=== PATIENT | female | born 1950 | race American Indian/Alaskan Native ===

== ENCOUNTER 2021-07-23 21:21 | Emergency (ER) | payer MEDICAID ==
[2021-07-23] MEDS ORDERED: ACETAMINOPHEN 500 MG TAB PO ONE (22:17)
[2021-07-23] MEDS ORDERED: IBUPROFEN 400 MG TAB PO ONE (22:38)
--- NOTE | 2021-07-23 22:41 | Emergency Department Report ---
ED General Adult HPI - General Chief complaint: Weakness Stated complaint: Weakness Time Seen by Provider: 07/23/21 22:34 Source: patient, EMS Mode of arrival: Stretcher Limitations: No Limitations - History of Present Illness Initial comments: Patient is a 70-year-old female with no history of any past medical problems who presents with fever chills and weakness has been going on for last few days. Patient states that her body aches are moderate patient states that she has been treating herself with TheraFlu and not feeling any better. Weakness is when she tries to move and is better with rest. Patient denies having any medical problems no nausea no shortness of breath no chest pain. Severity scale (0 -10): 5 - Related Data Previous Rx's Medication Instructions Recorded Last Taken Type D-Methorphan/PE/Acetaminophen 1 each PO Q6H #30 tablet 07/24/21 Unknown Rx [Tylenol Cold Max Day Caplet] Doxycycline Hyclate [Doxycycline 100 mg PO Q12HR #14 tab 07/24/21 Unknown Rx Hyclate TAB] Allergies Allergy/AdvReac Type Severity Reaction Status Date / Time clindamycin Allergy Unknown Verified 07/23/21 21:40 ED Review of Systems ROS: Stated complaint: Weakness Other details as noted in HPI Constitutional: denies: chills, fever Eyes: denies: eye pain, eye discharge, vision change ENT: denies: ear pain, throat pain Respiratory: cough. denies: shortness of breath, wheezing Cardiovascular: denies: chest pain, palpitations Endocrine: no symptoms reported Gastrointestinal: denies: abdominal pain, nausea, diarrhea Genitourinary: denies: urgency, dysuria, discharge Musculoskeletal: myalgia. denies: back pain, joint swelling, arthralgia Skin: denies: rash, lesions Neurological: denies: headache, weakness, paresthesias Psychiatric: denies: anxiety, depression Hematological/Lymphatic: denies: easy bleeding, easy bruising ED Past Medical Hx - Past Medical History Previous Medical History?: Yes Additional medical history: MS - Medications Home Medications: Home Medications Medication Instructions Recorded Confirmed Last Taken Type D-Methorphan/PE/Acetaminophen 1 each PO Q6H #30 tablet 07/24/21 Unknown Rx [Tylenol Cold Max Day Caplet] Doxycycline Hyclate [Doxycycline 100 mg PO Q12HR #14 tab 07/24/21 Unknown Rx Hyclate TAB] ED Physical Exam - General Limitations: No Limitations General appearance: alert, in no apparent distress - Head Head exam: Present: atraumatic, normocephalic - Eye Eye exam: Present: normal appearance - ENT ENT exam: Present: mucous membranes moist - Neck Neck exam: Present: normal inspection - Respiratory Respiratory exam: Present: normal lung sounds bilaterally. Absent: respiratory distress - Cardiovascular Cardiovascular Exam: Present: regular rate, normal rhythm. Absent: systolic murmur, diastolic murmur, rubs, gallop - GI/Abdominal GI/Abdominal exam: Present: soft, normal bowel sounds - Extremities Exam Extremities exam: Present: normal inspection - Back Exam Back exam: Present: normal inspection - Neurological Exam Neurological exam: Present: alert, oriented X3 - Psychiatric Psychiatric exam: Present: normal affect, normal mood - Skin Skin exam: Present: warm, dry, intact, normal color. Absent: rash ED Course Vital Signs 07/23/21 07/23/21 07/23/21 21:30 22:45 23:13 Temperature 102.3 F H 100.6 F H Pulse Rate 119 H 100 H Respiratory 20 20 20 Rate Blood Pressure 177/102 140/74 [Right] O2 Sat by Pulse 94 93 Oximetry ED Medical Decision Making - Lab Data Result diagrams: 07/23/21 22:59 07/23/21 22:59 Lab Results 07/23/21 07/23/21 07/23/21 Range/Units 22:59 22:59 22:59 WBC 3.6 L (4.5-11.0) K/mm3 RBC 4.67 (3.65-5.03) M/mm3 Hgb 12.8 (10.1-14.3) gm/dl Hct 40.3 (30.3-42.9) % MCV 86 (79-97) fl MCH 27 L (28-32) pg MCHC 32 (30-34) % RDW 16.1 H (13.2-15.2) % Plt Count 197 (140-440) K/mm3 Lymph % (Auto) 18.3 (13.4-35.0) % Wheeler % (Auto) 8.4 H (0.0-7.3) % Eos % (Auto) 0.0 (0.0-4.3) % Baso % (Auto) 0.2 (0.0-1.8) % Lymph # (Auto) 0.7 L (1.2-5.4) K/mm3 Wheeler # (Auto) 0.3 (0.0-0.8) K/mm3 Eos # (Auto) 0.0 (0.0-0.4) K/mm3 Baso # (Auto) 0.0 (0.0-0.1) K/mm3 Seg Neutrophils % 73.1 H (40.0-70.0) % Seg Neutrophils # 2.7 (1.8-7.7) K/mm3 Sodium 141 (137-145) mmol/L Potassium 3.6 (3.6-5.0) mmol/L Chloride 98.8 (98-107) mmol/L Carbon Dioxide 24 (22-30) mmol/L Anion Gap 22 mmol/L BUN 9 (7-17) mg/dL Creatinine 0.7 (0.6-1.2) mg/dL Estimated GFR > 60 ml/min BUN/Creatinine Ratio 13 % Glucose 108 H (65-100) mg/dL Lactic Acid 1.50 (0.7-2.0) mmol/L Calcium 8.8 (8.4-10.2) mg/dL NT-Pro-B Natriuret Pep (0-900) pg/mL 07/23/21 Range/Units 22:59 WBC (4.5-11.0) K/mm3 RBC (3.65-5.03) M/mm3 Hgb (10.1-14.3) gm/dl Hct (30.3-42.9) % MCV (79-97) fl MCH (28-32) pg MCHC (30-34) % RDW (13.2-15.2) % Plt Count (140-440) K/mm3 Lymph % (Auto) (13.4-35.0) % Wheeler % (Auto) (0.0-7.3) % Eos % (Auto) (0.0-4.3) % Baso % (Auto) (0.0-1.8) % Lymph # (Auto) (1.2-5.4) K/mm3 Wheeler # (Auto) (0.0-0.8) K/mm3 Eos # (Auto) (0.0-0.4) K/mm3 Baso # (Auto) (0.0-0.1) K/mm3 Seg Neutrophils % (40.0-70.0) % Seg Neutrophils # (1.8-7.7) K/mm3 Sodium (137-145) mmol/L Potassium (3.6-5.0) mmol/L Chloride (98-107) mmol/L Carbon Dioxide (22-30) mmol/L Anion Gap mmol/L BUN (7-17) mg/dL Creatinine (0.6-1.2) mg/dL Estimated GFR ml/min BUN/Creatinine Ratio % Glucose (65-100) mg/dL Lactic Acid (0.7-2.0) mmol/L Calcium (8.4-10.2) mg/dL NT-Pro-B Natriuret Pep 51.58 (0-900) pg/mL - Radiology Data Radiology results: report reviewed, image reviewed Chest x-ray shows no acute cardiopulmonary disease - Medical Decision Making Chief medical diagnosis: COVID-19 Differential medical diagnosis: Pneumonia, influenza I will get chest x-ray Tylenol Motrin blood work IV fluids and I will reevaluate the patient. Critical care attestation.: If time is entered above; I have spent that time in minutes in the direct care of this critically ill patient, excluding procedure time. ED Disposition Clinical Impression: Weakness, COVID-19 Fever Qualifiers: Fever type: unspecified Qualified Code(s): R50.9 - Fever, unspecified Disposition: 01 HOME / SELF CARE / HOMELESS Is pt being admited?: No Does the pt Need Aspirin: No Instructions: Fatigue, Fever, Adult, COVID-19 Frequently Asked Questions Prescriptions: Doxycycline Hyclate [Doxycycline Hyclate TAB] 100 mg PO Q12HR #14 tab D-Methorphan/PE/Acetaminophen [Tylenol Cold Max Day Caplet] 1 each PO Q6H #30 tablet Referrals: PRIMARY CARE, [Primary Care Provider] - 3-5 Days
--- NOTE | 2021-07-23 23:22 | XRay Report ---
CHEST 1 VIEW 07/23/2021 10:05 PM INDICATION / CLINICAL INFORMATION: weakness. COMPARISON: None available. FINDINGS: SUPPORT DEVICES: None. HEART / MEDIASTINUM: No significant abnormality. LUNGS / PLEURA: No significant pulmonary or pleural abnormality. No pneumothorax. ADDITIONAL FINDINGS: No significant additional findings. IMPRESSION: 1. No acute findings. Signer Name: Huber Hardin DO Signed: 07/23/2021 11:18 PM Workstation Name: [id number]
[2021-07-23 23:32] LABS: Basophils % (Auto) 0.2 % (0.0-1.8); Hematocrit 40.3 % (30.3-42.9); Hemoglobin 12.8 gm/dl (10.1-14.3); Lymphocytes # (Auto) 0.7 K/mm3 (1.2-5.4); Lymphocytes % (Auto) 18.3 % (13.4-35.0); Mean Corpuscular HGB Conc 32 % (30-34); Mean Corpuscular Volume 86 fl (79-97); Monocytes # (Auto) 0.3 K/mm3 (0.0-0.8); Monocytes % (Auto) 8.4 % (0.0-7.3); Platelet Count 197 K/mm3 (140-440); Red Blood Count 4.67 M/mm3 (3.65-5.03); Red Cell Distribution Width 16.1 % (13.2-15.2)
[2021-07-23] MEDS ORDERED: SODIUM CHLORIDE 0.9% 1000 ML 1,000 ML IV ONE (23:40)
[2021-07-23 23:48] LABS: Blood Urea Nitrogen 9 mg/dL (7-17); Calcium 8.8 mg/dL (8.4-10.2); Hemolysis Index 0
[2021-07-23 23:52] LABS: BUN/Creatinine Ratio 13
[2021-07-24 04:07] VITALS: BP 132/75
== END 2021-07-24 03:00 | disposition home or self-care (01) ==
LOC: ED 21:21
DX: U07.1 COVID-19 (principal); R50.9 Fever, unspecified; R53.1 Weakness
CPT/HCPCS: 36415; 71045; 80048; 82140; 83880; 85025; 99284

== ENCOUNTER 2021-08-14 10:09 | Inpatient (IN) | payer MEDICARE ==
[2021-08-14 11:15] LABS: Basophils % (Auto) 0.5 % (0.0-1.8); Eosinophils % (Auto) 0.1 % (0.0-4.3); Hemoglobin 11.3 gm/dl (10.1-14.3); Lymphocytes # (Auto) 0.9 K/mm3 (1.2-5.4); Lymphocytes % (Auto) 10.7 % (13.4-35.0); Mean Corpuscular HGB Conc 32 % (30-34); Mean Corpuscular Volume 87 fl (79-97); Monocytes # (Auto) 0.4 K/mm3 (0.0-0.8); Monocytes % (Auto) 4.8 % (0.0-7.3); Platelet Count 236 K/mm3 (140-440); Red Blood Count 4.15 M/mm3 (3.65-5.03); Red Cell Distribution Width 16.2 % (13.2-15.2)
--- NOTE | 2021-08-14 11:20 | XRay Report ---
CHEST 1 VIEW INDICATION: Chest Pain. COMPARISON: 07/23/2021 FINDINGS: Support devices: None. Heart: Within normal limits. Lungs/Pleura: No acute air space or interstitial disease. No pleural abnormality or pneumothorax. Additional findings: None. IMPRESSION: No acute findings or change since 07/23/2021. Signer Name: Delio Jones Jr, MD Signed: 08/14/2021 11:15 AM Workstation Name: [id number]
[2021-08-14 11:25] LABS: INR 0.92 (0.87-1.13)
[2021-08-14 11:26] LABS: Partial Thromboplastin Time 34.8 Sec. (24.2-36.6)
[2021-08-14 11:39] LABS: Alanine Aminotransferase 10 units/L (7-56); Albumin 3.6 g/dL (3.9-5); Blood Urea Nitrogen 5 mg/dL (7-17); Calcium 9.2 mg/dL (8.4-10.2); Hemolysis Index 36
[2021-08-14 11:43] LABS: BUN/Creatinine Ratio 13
[2021-08-14] MEDS ORDERED: MORPHINE 4 MG/1 ML INJ IV ONE ×2 (11:50→15:40)
[2021-08-14] MEDS ORDERED: ONDANSETRON 4 MG/2 ML INJ IV ONE (11:52)
--- NOTE | 2021-08-14 11:55 | Emergency Department Report ---
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 Patient describes the pain as a gas sensation with epigastric bloating and tenderness to palpation. Patient then b marline to experience pain in her chest. She took gas medication without relief. She did belch and pass gas rectally without improvement. She denies nausea, vomiting, shortness of breath, cough, or fever. 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 She denies previous abdominal surgeries or history of hypertension. She states she had a negative stress test approximately 1 year ago denies history of CAD. Previous history of smoking but stopped in 2003. Denies family history of CAD Chart initially states that patient has an allergy to clindamycin. Patient denied clindamycin allergy and states she has allergy to penicillin and tetracycline. She has an adverse reaction to aspirin and it makes her stomach upset. She denies true allergy to aspirin Severity scale (0 -10): 9 - Related Data Previous Rx's Medication Instructions Recorded Last Taken Type D-Methorphan/PE/Acetaminophen 1 each PO Q6H #30 tablet 07/24/21 Unknown Rx [Tylenol Cold Max Day Caplet] Doxycycline Hyclate [Doxycycline 100 mg PO Q12HR #14 tab 07/24/21 Unknown Rx Hyclate TAB] Allergies Allergy/AdvReac Type Severity Reaction Status Date / Time Penicillins Allergy Rash Verified 08/14/21 11:48 tetracycline Allergy Rash Verified 08/14/21 11:49 aspirin AdvReac Unknown Verified 08/14/21 11:49 Heart Score - HEART Score History: Slightly suspicious EKG: Non-specific Age: > 65 Risk factors: 1-2 risk factors Troponin: < normal limit HEART Score: 4 - EKG Read Time Time EKG Completed: 10:33 EKG Read Time: 10:40 ED Review of Systems ROS: Stated complaint: chest pain Other details as noted in HPI Comment: All other systems reviewed and negative ED Past Medical Hx - Past Medical History Previous Medical History?: Yes Additional medical history: avm of the thoracic spine - Surgical History Past Surgical History?: Yes Additional Surgical History: spinal surgery x 2 2004 - Social History Smoking Status: Unknown if ever smoked - Medications Home Medications: Home Medications Medication Instructions Recorded Confirmed Last Taken Type D-Methorphan/PE/Acetaminophen 1 each PO Q6H #30 tablet 07/24/21 Unknown Rx [Tylenol Cold Max Day Caplet] Doxycycline Hyclate [Doxycycline 100 mg PO Q12HR #14 tab 07/24/21 Unknown Rx Hyclate TAB] ED Physical Exam - General Limitations: No Limitations - Other Other exam information: General: No acute distress Head: Atraumatic Eyes: normal appearance ENT: Moist mucous membranes Neck: Normal appearance, no midline tenderness Chest: Clear to auscultation bilaterally CV: Regular rate and rhythm Abdomen: Soft, normal bowel sounds, epigastric tenderness and bloating. No rebound or guarding Back: Posterior thoracic surgical scar from previous surgery Extremity: Normal inspection, full range of motion Neuro: Alert O x 3, no facial asymmetry, speech clear, no gross motor sensory deficit Psych: Appropriate behavior Skin: No rash ED Course Vital Signs 08/14/21 08/14/21 10:48 10:52 Temperature 98.4 F Pulse Rate 71 Respiratory 12 Rate Blood Pressure 146/76 [Right] O2 Sat by Pulse 97 97 Oximetry - Reevaluation(s) Reevaluation #1: 08/14/21 14:59 Pt is noted to have a drop in o2 sat to the 80's with ambulation as per nurse - Consultations Consultation #1: 08/14/21 11:53 case Bubba housing counselor who aggress that ekg does not show STEMI 08/14/21 15:41 08/14/21 I did discuss case with neurosurgeon Dr. Ca who states that spinal AVMs in 2004 is not a contraindication to receive anticoagulation ED Medical Decision Making - Lab Data Result diagrams: 08/14/21 10:54 08/14/21 10:54 Lab Results 08/14/21 08/14/21 08/14/21 Range/Units 10:54 10:54 10:54 WBC 8.2 (4.5-11.0) K/mm3 RBC 4.15 (3.65-5.03) M/mm3 Hgb 11.3 (10.1-14.3) gm/dl Hct 36.0 (30.3-42.9) % MCV 87 (79-97) fl MCH 27 L (28-32) pg MCHC 32 (30-34) % RDW 16.2 H (13.2-15.2) % Plt Count 236 (140-440) K/mm3 Lymph % (Auto) 10.7 L (13.4-35.0) % Beckham % (Auto) 4.8 (0.0-7.3) % Eos % (Auto) 0.1 (0.0-4.3) % Baso % (Auto) 0.5 (0.0-1.8) % Lymph # (Auto) 0.9 L (1.2-5.4) K/mm3 Beckham # (Auto) 0.4 (0.0-0.8) K/mm3 Eos # (Auto) 0.0 (0.0-0.4) K/mm3 Baso # (Auto) 0.0 (0.0-0.1) K/mm3 Seg Neutrophils % 83.9 H (40.0-70.0) % Seg Neutrophils # 6.9 (1.8-7.7) K/mm3 PT 13.4 (12.2-14.9) Sec. INR 0.92 (0.87-1.13) APTT 34.8 (24.2-36.6) Sec. D-Dimer 1972.09 H (0-234) ng/mlDDU Sodium 131 L (137-145) mmol/L Potassium 4.2 (3.6-5.0) mmol/L Chloride 97.7 L (98-107) mmol/L Carbon Dioxide 21 L (22-30) mmol/L Anion Gap 17 mmol/L BUN 5 L (7-17) mg/dL Creatinine 0.4 L (0.6-1.2) mg/dL Estimated GFR > 60 ml/min BUN/Creatinine Ratio 13 % Glucose 116 H (65-100) mg/dL Calcium 9.2 (8.4-10.2) mg/dL Magnesium 1.80 (1.7-2.3) mg/dL Total Bilirubin 0.50 (0.1-1.2) mg/dL AST 15 (5-40) units/L ALT 10 (7-56) units/L Alkaline Phosphatase 70 (35-129) units/L Troponin T < 0.010 (0.00-0.029) ng/mL Total Protein 7.3 (6.3-8.2) g/dL Albumin 3.6 L (3.9-5) g/dL Albumin/Globulin Ratio 1.0 % Lipase 10 L (13-60) units/L - EKG Data -: EKG Interpreted by Me (Inferior Q waves) EKG shows normal: sinus rhythm, intervals (Prolonged QTC 517), QRS complexes (Normal QRS duration 82), ST-T waves (Anterior T wave inversions. Inferior T wave inversion) - EKG Data When compared to previous EKG there are: previous EKG unavailable - Radiology Data Radiology results: report reviewed CHEST 1 VIEW INDICATION: Chest Pain. COMPARISON: 07/23/2021 FINDINGS: Support devices: None. Heart: Within normal limits. Lungs/Pleura: No acute air space or interstitial disease. No pleural abnormality or pneumothorax. Additional findings: None. IMPRESSION: No acute findings or change since 07/23/2021. CTA CHEST WITH CONTRAST INDICATION / CLINICAL INFORMATION: epigastric and chest pain, elevated dimer 100 ML OMNI 350 . TECHNIQUE: Axial CT images were obtained through the chest after injection of 100 cc of Omnipaque 350 IV contrast. 3 plane MIP and/or 3D reconstructions were produced. All CT scans at this location are performed using CT dose reduction for ALARA by means of automated exposure control. COMPARISON: Chest radiograph from earlier in the day FINDINGS: PULMONARY ARTERIES: Multiple filling defects are noted within the segmental and subsegmental arteries of the right lower, right middle, right upper and left lower lobes. No evidence of right heart strain. THORACIC AORTA: No significant abnormality. HEART: No significant abnormality. CORONARY ARTERY CALCIFICATION: None. MEDIASTINUM / ZULEYKA: No significant abnormality. PLEURA: No pleural effusion. No pneumothorax. LUNGS: Scattered atelectasis. ADDITIONAL FINDINGS: None. UPPER ABDOMEN: Small hiatal hernia. SKELETAL STRUCTURES: Scattered degeneration. IMPRESSION: 1. Multiple pulmonary emboli. 2. Otherwise no acute findings. CTA ABDOMEN AND PELVIS (AORTIC ANEURYSM) INDICATION / CLINICAL INFORMATION: epigastric and chest pain, elevated dimer OMNI 350 100ML. TECHNIQUE: Axial CT images were obtained through the abdomen and pelvis after injection of 100 cc of Omnipaque 350 IV contrast. 3 plane MIP and/or 3D reconstructions were produced. All CT scans at this location are performed using CT dose reduction for ALARA by means of automated exposure control. COMPARISON: CT of the chest from earlier in the day FINDINGS: ABDOMINAL AORTA: - Dissection: No dissection. - Aneurysm: No aneurysm or pseudoaneurysm. - Atherosclerosis: No significant atherosclerosis. CELIAC TRUNK: No significant abnormality. SUPERIOR MESENTERIC ARTERY: No significant abnormality. RENAL ARTERIES: No significant abnormality. INFERIOR MESENTERIC ARTERY: No significant abnormality. RIGHT ILIAC ARTERIES: No acute abnormality. No significant atherosclerosis. LEFT ILIAC ARTERIES: No acute abnormality. No significant atherosclerosis. RIGHT FEMORAL ARTERIES: No acute abnormality. No significant atherosclerosis. LEFT FEMORAL ARTERIES: No acute abnormality. No significant atherosclerosis. ABDOMINOPELVIC VEINS: Single IVC of normal caliber to the right of midline. No significant abnormality. ADDITIONAL FINDINGS: Redemonstration of pulmonary emboli better appreciated on CTA of the chest. Scattered atelectasis in bilateral lung bases. Small hiatal hernia. Increased density within the gallbladder lumen suggesting gallbladder sludge. Fibroid uterus. SKELETAL SYSTEM: Scattered degeneration. IMPRESSION: 1. No evidence of aortic aneurysm or dissection. 2. Redemonstrated pulmonary emboli, better appreciated on concurrent CT of the chest. 3. Other incidental findings as above. - Medical Decision Making 70-year-old female presents to the hospital with epigastric pain radiating to the chest. CT angio chest abdomen pelvis unremarkable for acute abdominal pathology but significant for multiple pulmonary emboli. Patient was here in June with URI symptoms and did not receive a COVID test. Patient now endorses dyspnea on exertion and nurse noticed O2 sat decreased to the 80s with ambulation. Patient provided morphine, Zofran, and Maalox for abdominal pain. Lovenox provided for pulmonary emboli. Patient will be admitted to the hospital service for further treatment. EKG does show abnormalities without previous for comparison. She does not meet ST elevation MT criteria at this time and EKG findings may be secondary to pulmonary emboli versus chronic changes. Critical Care Time: No Critical care attestation.: If time is entered above; I have spent that time in minutes in the direct care of this critically ill patient, excluding procedure time. ED Disposition Clinical Impression: Pulmonary emboli, Abdominal pain, Chest pain Disposition: ADMITTED INPATIENT Is pt being admited?: Yes Condition: Stable Time of Disposition: 14:52
--- NOTE | 2021-08-14 13:21 | Cat Scan Report ---
CTA CHEST WITH CONTRAST INDICATION / CLINICAL INFORMATION: epigastric and chest pain, elevated dimer 100 ML OMNI 350 . TECHNIQUE: Axial CT images were obtained through the chest after injection of 100 cc of Omnipaque 350 IV contrast. 3 plane MIP and/or 3D reconstructions were produced. All CT scans at this location are performed using CT dose reduction for ALARA by means of automated exposure control. COMPARISON: Chest radiograph from earlier in the day FINDINGS: PULMONARY ARTERIES: Multiple filling defects are noted within the segmental and subsegmental arteries of the right lower, right middle, right upper and left lower lobes. No evidence of right heart strai n. THORACIC AORTA: No significant abnormality. HEART: No significant abnormality. CORONARY ARTERY CALCIFICATION: None. MEDIASTINUM / ZULEYKA: No significant abnormality. PLEURA: No pleural effusion. No pneumothorax. LUNGS: Scattered atelectasis. ADDITIONAL FINDINGS: None. UPPER ABDOMEN: Small hiatal hernia. SKELETAL STRUCTURES: Scattered degeneration. IMPRESSION: 1. Multiple pulmonary emboli. 2. Otherwise no acute findings. CRITICAL RESULT Time of Discovery (AUTOMOTIVE GLASS MECHANIC/CDT): 12:08 PM Time of Communication (AUTOMOTIVE GLASS MECHANIC/CDT): 12:15 PM Licensed Practitioner Receiving Report: Dr. Lucas Read-Back Performed: Yes. Signer Name: Huber Hardin DO Signed: 08/14/2021 1:17 PM Workstation Name: [id number]
--- NOTE | 2021-08-14 14:02 | Cat Scan Report ---
CTA ABDOMEN AND PELVIS (AORTIC ANEURYSM) INDICATION / CLINICAL INFORMATION: epigastric and chest pain, elevated dimer OMNI 350 100ML. TECHNIQUE: Axial CT images were obtained through the abdomen and pelvis after injection of 100 cc of Omnipaque 350 IV contrast. 3 plane MIP and/or 3D reconstructions were produced. All CT scans at this location are performed using CT dose reduction for ALARA by means of automated exposure control. COMPARISON: CT of the chest from earlier in the day FINDINGS: ABDOMINAL AORTA: - Dissection: No dissection. - Aneurysm: No aneurysm or pseudoaneurysm. - Atherosclerosis: No significant atherosclerosis. CELIAC TRUNK: No significant abnormality. SUPERIOR MESENTERIC ARTERY: No significant abnormality. RENAL ARTERIES: No significant abnormality. INFERIOR MESENTERIC ARTERY: No significant abnormality. RIGHT ILIAC ARTERIES: No acute abnormality. No significant atherosclerosis. LEFT ILIAC ARTERIES: No acute abnormality. No significant atherosclerosis. RIGHT FEMORAL ARTERIES: No acute abnormality. No significant atherosclerosis. LEFT FEMORAL ARTERIES: No acute abnormality. No significant atherosclerosis. ABDOMINOPELVIC VEINS: Single IVC of normal caliber to the right of midline. No significant abnormalit y. ADDITIONAL FINDINGS: Redemonstration of pulmonary emboli better appreciated on CTA of the chest. Scat tered atelectasis in bilateral lung bases. Small hiatal hernia. Increased density within the gallblad robbie lumen suggesting gallbladder sludge. Fibroid uterus. SKELETAL SYSTEM: Scattered degeneration. IMPRESSION: 1. No evidence of aortic aneurysm or dissection. 2. Redemonstrated pulmonary emboli, better appreciated on concurrent CT of the chest. 3. Other incidental findings as above. Signer Name: Huber Hardin DO Signed: 08/14/2021 1:58 PM Workstation Name: [id number]
[2021-08-14] MEDS ORDERED: ENOXAPARIN 100 MG/1 ML INJ SUB-Q ONE (14:34)
--- NOTE | 2021-08-14 14:53 | History and Physical Report ---
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 Patient reports "it hurts and I breathe". Patient states that she has experienced chest discomfort over the past this Thursday with intermittent symptoms over the same timeframe. Patient states that she aches felt as if she had bloating in her chest and initially experienced relieved with belching. Patient states the pain has gotten progressively worse over the past 8 hours. Patient states that pain is 9/10, is now constant, worsened with deep breathing, not relieved with rest. EMS was notified and upon arrival the patient was found to be in distress and subsequent transported to [facility] for further care and evaluation of the aforementioned symptoms. The patient was seen and evaluated in the emergency department. All lab and imaging studies reviewed. Patient underwent CTA of the chest and was found to have diffuse right pulmonary emboli, hyponatremia. Patient admitted to medical floor due to increased risk of worsening symptoms. Patient treated with initiation of therapeutic anticoagulation without relief in symptoms. Patient denies fever, chills, palpitation, productive cough, skin rash, recent contact, or known exposure to COVID-19. No prior admission for review. All medication listed at time of admission has been reconciled. Advanced care planning conducted in ED. Past History Past Medical History: other (See HPI) Past Surgical History: Other (Spine surgery) Social history: single Family history: diabetes, hypertension Medications and Allergies Allergies Allergy/AdvReac Type Severity Reaction Status Date / Time Penicillins Allergy Rash Verified 08/14/21 11:48 tetracycline Allergy Rash Verified 08/14/21 11:49 aspirin AdvReac Unknown Verified 08/14/21 11:49 Home Medications Medication Instructions Recorded Confirmed Last Taken Type D-Methorphan/PE/Acetaminophen 1 each PO Q6H #30 tablet 07/24/21 Unknown Rx [Tylenol Cold Max Day Caplet] Doxycycline Hyclate [Doxycycline 100 mg PO Q12HR #14 tab 07/24/21 Unknown Rx Hyclate TAB] Review of Systems Constitutional: no weight loss, no weight gain, no fever, no chills Ears, nose, mouth and throat: no ear pain, no ear discharge, no decreased hearing, no nasal discharge, no sinus pressure Cardiovascular: no chest pain, no orthopnea, no palpitations Respiratory: shortness of breath, pleurisy, no cough Gastrointestinal: no abdominal pain, no nausea, no vomiting, no diarrhea Genitourinary Female: no pelvic pain, no flank pain, no dysuria, no urinary frequency, no urgency, no stress incontinence Rectal: no pain, no incontinence, no bleeding Musculoskeletal: no neck stiffness, no neck pain, no shooting arm pain, no arm numbness/tingling, no low back pain Integumentary: no rash, no pruritis, no redness, no sores, no wounds Neurological: no head injury, no transient paralysis, no paralysis, no weakness, no parathesias, no numbness Psychiatric: no anxiety, no memory loss, no change in sleep habits, no insomnia, no hypersomnia, no suicidal ideation, no disorientation Endocrine: no cold intolerance, no heat intolerance, no polyphagia, no polyuria Hematologic/Lymphatic: no easy bruising, no easy bleeding, no lymphedema Allergic/Immunologic: no urticaria, no allergic rhinitis, no persistent infections Exam - Constitutional Vitals: Temp Pulse Resp BP Pulse Ox 98.4 F 71 12 146/76 97 08/14/21 10:48 08/14/21 10:48 08/14/21 10:48 08/14/21 10:48 08/14/21 10:52 General appearance: Present: mild distress, obese - EENT Eyes: Present: PERRL ENT: hearing intact, clear oral mucosa - Neck Neck: Present: supple, normal ROM - Respiratory Respiratory effort: normal Respiratory: right: diminished - Cardiovascular Heart Sounds: Present: S1 & S2. Absent: rub, click - Extremities Extremities: pulses symmetrical, No edema Peripheral Pulses: within normal limits - Abdominal General gastrointestinal: Present: soft, non-tender, non-distended, normal bowel sounds Female genitourinary: Present: normal - Integumentary Integumentary: Present: clear, warm, dry - Musculoskeletal Musculoskeletal: gait normal, strength equal bilaterally - Psychiatric Psychiatric: appropriate mood/affect, intact judgment & insight - Neurologic Neurologic: CNII-XII intact, moves all extremities HEART Score - HEART Score EKG: Non-specific Age: > 65 Risk factors: 1-2 risk factors Troponin: Troponin T < 0.010 ng/mL (0.00-0.029) 08/14/21 10:54 Results - Labs CBC & Chem 7: 01/19/22 17:24 08/14/21 10:54 Labs: Abnormal lab results 08/14/21 08/14/21 08/14/21 Range/Units 10:54 10:54 10:54 MCH 27 L (28-32) pg RDW 16.2 H (13.2-15.2) % Lymph % (Auto) 10.7 L (13.4-35.0) % Lymph # (Auto) 0.9 L (1.2-5.4) K/mm3 Seg Neutrophils % 83.9 H (40.0-70.0) % D-Dimer 1972.09 H (0-234) ng/mlDDU Sodium 131 L (137-145) mmol/L Chloride 97.7 L (98-107) mmol/L Carbon Dioxide 21 L (22-30) mmol/L BUN 5 L (7-17) mg/dL Creatinine 0.4 L (0.6-1.2) mg/dL Glucose 116 H (65-100) mg/dL Albumin 3.6 L (3.9-5) g/dL Lipase 10 L (13-60) units/L Assessment and Plan - Patient Problems (1) Pulmonary emboli Current Visit: Yes Status: Acute Qualifiers: Acute cor pulmonale presence: without acute cor pulmonale Plan to address problem: CT scan chest, chest x-ray, supplemental oxygen, pulse oximetry, therapeutic anticoagulation. (2) Obesity hypoventilation syndrome Current Visit: Yes Status: Acute Plan to address problem: Balanced diet, increase physical activity at discharge, outpatient pulmonary follow-up for sleep study. (3) Hyponatremia syndrome Current Visit: Yes Status: Acute Plan to address problem: BMP, IV fluid resuscitation therapy, repeat BMP in AM. (4) DVT prophylaxis Current Visit: Yes Status: Acute Plan to address problem: SCD to bilateral lower extremities while in bed, continue therapeutic anticoagulation (5) Advance care planning Current Visit: Yes Status: Acute Plan to address problem: Disease education conducted, care plan discussed, diagnosis discussed, patient prognosis discussed, patient is full code, patient acknowledges understanding and agreement with care plan, +30 minutes
[2021-08-14] MEDS ORDERED: ALUM-MAG HYDROXIDE-SIMETHICONE 200-200-20MG/5ML ORAL LIQD 30 ML PO ONE (15:40)
[2021-08-14] MEDS ORDERED: ALBUTEROL 2.5 MG/3 ML NEBU IH PRN (16:11)
[2021-08-14] MEDS ORDERED: ACETAMINOPHEN 325 MG TAB PO PRN (16:11)
[2021-08-14] MEDS ORDERED: ONDANSETRON 4 MG/2 ML INJ IV PRN (16:11)
[2021-08-14] MEDS ORDERED: oxyCODONE /ACETAMINOPHEN 5-325MG TAB PO PRN (16:11)
[2021-08-14 17:56] LABS: Hematocrit 38.1 % (30.3-42.9); Hemoglobin 12.2 gm/dl (10.1-14.3); Mean Corpuscular HGB Conc 32 % (30-34); Mean Corpuscular Volume 88 fl (79-97); Platelet Count 246 K/mm3 (140-440); Red Blood Count 4.35 M/mm3 (3.65-5.03); Red Cell Distribution Width 16.5 % (13.2-15.2)
[2021-08-14] MEDS: HYDROmorphone 1 MG/1 ML INJ IV PRN (18:05)
[2021-08-14] MEDS: SODIUM CHLORIDE 0.45% 1000 ML 1,000 ML IV SCH (18:05)
[2021-08-14 18:09] LABS: INR 0.97 (0.87-1.13); Partial Thromboplastin Time 41.4 Sec. (24.2-36.6)
[2021-08-14] MEDS: APIXABAN 5 MG TAB PO SCH (23:02)
[2021-08-15 04:07] LABS: Bilirubin,Urine NEG (Negative); Blood,Urine NEG (Negative); Color,Urine Straw (Yellow); Protein,Urine <15 mg/dL mg/dL (Negative); RBC,Urine < 1.0 /HPF (0.0-6.0); Urobilinogen,Urine < 2.0 mg/dL (<2.0)
[2021-08-15 04:19] LABS: WBC,Urine < 1.0 /HPF (0.0-6.0)
[2021-08-15 04:59] LABS: Alanine Aminotransferase 9 units/L (7-56); Albumin 3.6 g/dL (3.9-5); Blood Urea Nitrogen 8 mg/dL (7-17); Calcium 8.6 mg/dL (8.4-10.2); Hemolysis Index 2
[2021-08-15 05:08] LABS: BUN/Creatinine Ratio 11
[2021-08-15] MEDS: HYDROmorphone 1 MG/1 ML INJ IV PRN ×2 (05:11→21:23)
[2021-08-15] MEDS: APIXABAN 5 MG TAB PO SCH ×2 (11:22→21:19)
[2021-08-15] MEDS ORDERED: ALPRAZolam 0.25 MG TAB PO PRN (13:00)
--- NOTE | 2021-08-15 15:28 | Progress Note ---
Assessment and Plan -- Pulmonary emboli Current Visit: Yes Status: Acute Qualifiers: Acute cor pulmonale presence: without acute cor pulmonale Plan to address problem: supplemental oxygen, pulse oximetry, cont therapeutic anticoagulation. --COVID PUI, test ordered -- Obesity Current Visit: Yes Status: Acute Plan to address problem: Balanced diet, increase physical activity at discharge, outpatient pulmonary follow-up for sleep study. -- Hyponatremia syndrome Current Visit: Yes Status: Acute Plan to address problem: BMP, IV fluid resuscitation therapy, repeat BMP in AM. -- DVT prophylaxis Current Visit: Yes Status: Acute Plan to address problem: SCD to bilateral lower extremities while in bed, continue therapeutic anticoagulation -- Advance care planning Current Visit: Yes Status: Acute Plan to address problem: Disease education conducted, care plan discussed, diagnosis discussed, patient prognosis discussed, patient is full code, patient acknowledges understanding and agreement with care plan, +30 minutes Subjective Date of service: 08/15/21 Interval history: Patient seen and examined. Medical records and medication list reviewed. No acute event overnight noted by the RN. Patient denies any chest pain or difficulty breathing. Patient is tolerating diet. Discussed plan of care at bedside with patient. Objective - Exam Narrative Exam: GENERAL: well-developed obese elderly AAF lying on bed appeared to be in no discomfort. HEENT: Normocephalic. Atraumatic. No conjunctival congestion or icterus. Patient has moist mucous membranes. NECK: Supple. Trachea midline. CHEST/LUNGS: Clear to auscultated bilaterally, breathing nonlabored. No wheezes crackles or rhonchi. HEART/CARDIOVASCULAR: Regular in rate and rhythm. S1 and S2 positive. ABDOMEN: Abdomen is soft, nontender. Patient has normal bowel sounds. SKIN: There is no rash. Warm and dry. NEURO: No focal motor deficit. Follows command. MUSCULOSKELETAL: No joint effusion or tenderness. EXTRIMITY: No edema, no cyanosis or clubbing. PSYCH: Cooperative. - Constitutional Vitals: Vital Signs - 12hr 08/15/21 08/15/21 08/15/21 04:00 05:00 05:11 Pulse Rate 93 H 88 Respiratory 17 19 18 Rate Blood Pressure Blood Pressure 117/84 144/73 [Right] O2 Sat by Pulse 97 98 Oximetry 08/15/21 08/15/21 08/15/21 05:41 06:01 06:15 Pulse Rate 86 84 Respiratory 18 14 16 Rate Blood Pressure 111/53 111/53 Blood Pressure [Right] O2 Sat by Pulse 95 94 Oximetry 08/15/21 08/15/21 08/15/21 06:31 06:45 07:01 Pulse Rate 99 H 84 88 Respiratory 14 16 16 Rate Blood Pressure 118/70 118/70 141/91 Blood Pressure [Right] O2 Sat by Pulse 95 95 93 Oximetry 08/15/21 08/15/21 08/15/21 08:00 09:00 10:00 Pulse Rate 84 90 94 H Respiratory 11 L 16 19 Rate Blood Pressure 136/82 128/86 158/84 Blood Pressure [Right] O2 Sat by Pulse 96 96 96 Oximetry 08/15/21 08/15/21 11:00 12:01 Pulse Rate 89 96 H Respiratory 20 22 Rate Blood Pressure 149/76 156/74 Blood Pressure [Right] O2 Sat by Pulse 97 97 Oximetry - Labs CBC & Chem 7: 08/16/21 05:20 08/15/21 03:51 Labs: Abnormal lab results 08/14/21 08/14/21 08/14/21 Range/Units 17:24 17:24 17:24 RDW 16.5 H (13.2-15.2) % APTT 41.4 H (24.2-36.6) Sec. Sodium (137-145) mmol/L Creatinine 0.5 L (0.6-1.2) mg/dL Glucose (65-100) mg/dL Albumin (3.9-5) g/dL 08/15/21 Range/Units 03:51 RDW (13.2-15.2) % APTT (24.2-36.6) Sec. Sodium 135 L (137-145) mmol/L Creatinine (0.6-1.2) mg/dL Glucose 130 H (65-100) mg/dL Albumin 3.6 L (3.9-5) g/dL HEART Score - HEART Score EKG: Non-specific Age: > 65 Risk factors: 1-2 risk factors Troponin: Troponin T < 0.010 ng/mL (0.00-0.029) 08/14/21 17:24 Troponin: < normal limit
--- NOTE | 2021-08-15 16:55 | Vascular Lab Report ---
DUPLEX DOPPLER LOWER EXTREMITY VEINS, BILATERAL INDICATION / CLINICAL INFORMATION: Pulmonary emboli, chest pain. TECHNIQUE: Duplex doppler imaging was performed through the veins of both lower extremities using cindy ous compression and other maneuvers. COMPARISON: None available. FINDINGS: RIGHT COMMON FEMORAL VEIN: Negative. RIGHT FEMORAL VEIN: Negative. RIGHT POPLITEAL VEIN: Negative. RIGHT CALF VEINS: Negative. LEFT COMMON FEMORAL VEIN: Negative. LEFT FEMORAL VEIN: Negative. LEFT POPLITEAL VEIN: Negative. LEFT CALF VEINS: Negative. ADDITIONAL FINDINGS: None. IMPRESSION: 1. No sonographic evidence for DVT in either lower extremity. Signer Name: Lonny Anderson MD Signed: 08/15/2021 4:50 PM Workstation Name: [id number]
[2021-08-16 06:04] LABS: Hematocrit 33.9 % (30.3-42.9); Hemoglobin 10.8 gm/dl (10.1-14.3); Mean Corpuscular HGB Conc 32 % (30-34); Mean Corpuscular Volume 88 fl (79-97); Platelet Count 239 K/mm3 (140-440); Red Blood Count 3.84 M/mm3 (3.65-5.03); Red Cell Distribution Width 16.3 % (13.2-15.2)
[2021-08-16] MEDS: SODIUM CHLORIDE 0.45% 1000 ML 1,000 ML IV SCH (06:39)
[2021-08-16 07:34] VITALS: BP 135/69
[2021-08-16] MEDS: APIXABAN 5 MG TAB PO SCH (09:48)
[2021-08-16] MEDS ORDERED: NON-FORMULARY EACH (Metformin 500 MG) PO SCH (10:00)
--- NOTE | 2021-08-16 16:04 | Discharge Summary ---
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 Patient underwent CTA of the chest and was found to have diffuse right pulmonary emboli, hyponatremia. Patient admitted to medical floor due to increased risk of worsening symptoms. Patient treated with initiation of therapeutic anticoagulation, ruled out for COVID. Patient remained on room air and clinica lly stable. Patient was then discharged home in stable condition with outpatient follow-up. Patient was recommended to have hypercoagulable work-up as outpatient with PCP. Disposition: HOME / SELF CARE / HOMELESS Final Discharge Diagnosis (Prints w/discharge instructions): -- Acute Pulmonary emboli. -- COVID PUI, test result is negative. -- Hyponatremia. -- Obesity. 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 HEENT: Normocephalic. Atraumatic. No conjunctival congestion or icterus. Patient has moist mucous membranes. NECK: Supple. Trachea midline. CHEST/LUNGS: Clear to auscultated bilaterally, breathing nonlabored. No wheezes crackles or rhonchi. HEART/CARDIOVASCULAR: Regular in rate and rhythm. S1 and S2 positive. ABDOMEN: Abdomen is soft, nontender. Patient has normal bowel sounds. SKIN: There is no rash. Warm and dry. NEURO: No focal motor deficit. Follows command. MUSCULOSKELETAL: No joint effusion or tenderness. EXTRIMITY: No edema, no cyanosis or clubbing. PSYCH: Cooperative. - Constitutional Vitals: Temp Pulse Resp BP Pulse Ox 98.4 F 82 20 135/69 100 08/16/21 04:58 08/16/21 06:37 08/16/21 04:58 08/16/21 06:37 01/21/22 06:37 Plan Activity: advance as tolerated Weight Bearing Status: Weight Bear as Tolerated Diet: low fat, low salt Follow up with: PRIMARY CARE, [Primary Care Provider] - 7 Days KAMAR SINGH MD [Staff Physician] - 7 Days Prescriptions: Apixaban [Eliquis] 5 mg PO Q12HR #60 tablet predniSONE 10 mg PO .TAPER #21 tab Albuterol Mdi (or & Nicu Only) [ProAir HFA Inhaler] 2 puff IH QID PRN #8.5 gram PRN Reason: Shortness Of Breath
[2021-08-21] MEDS ORDERED: APIXABAN 5 MG TAB PO SCH (22:00)
== END 2021-08-16 17:33 | disposition home or self-care (01) | DRG 176 ==
LOC: ED 10:09 → 3A 16:11
PROVIDERS: ADMIT Internal Medicine; ATTEND Internal Medicine
DX: I26.99 Other pulmonary embolism without acute cor pulmonale (principal); E66.2 Morbid (severe) obesity with alveolar hypoventilation; E87.1 Hypo-osmolality and hyponatremia; Z83.3 Family history of diabetes mellitus; Z82.49 Family history of ischemic heart disease and other diseases of the circulatory system; Z68.33 Body mass index [BMI] 33.0-33.9, adult; Z20.822 Contact with and (suspected) exposure to COVID-19
CPT/HCPCS: 36415; 71045; 71275; 74174; 80053; 81001; 82565; 83690; 83735; 83880; 84484; 85025; 85027; 85379; 85610; 85730; 93005; 93010; 93970; G0378; J3490; J1170; J1650; J2270; J2405; J7030; Q9967; U0003

== ENCOUNTER 2021-08-18 14:21 | Emergency (ER) | payer MEDICARE ==
[2021-08-18] MEDS ORDERED: HYDROcodone/ACETAMINOPHEN 5-325 MG TAB PO ONE (14:24)
--- NOTE | 2021-08-18 14:24 | Emergency Department Report ---
ED General Adult HPI - General Stated complaint: CHEST PAIN Time Seen by Provider: 08/18/21 14:23 - History of Present Illness Initial comments: Patient presents by ambulance secondary right-sided chest pain. She is complaining of a sharp and stabbing right-sided chest pain that starts in the substernal area and radiates around to the right ribs and right back area. This started several days ago. She was in the hospital recently and diagnosed with pulmonary embolism. She is on Eliquis. She states that she has been taking that faithfully. She has taken Tylenol for pain. That did not help. She came in for evaluation treatment because she could not tolerate the pain any longer. This is the same pain she has been having the entire time. She has no new symptoms. There is no new trauma. She has no new fevers or chills. There is no new cough or congestion. She does not feel short of breath - Related Data Home Medications Medication Instructions Recorded Confirmed Last Taken Pregabalin 50 mg PO TID 08/16/21 08/16/21 Unknown metFORMIN 500 mg PO BID 08/16/21 08/16/21 08/18/21 07:00 Previous Rx's Medication Instructions Recorded Last Taken Type Albuterol Mdi (or & Nicu Only) 2 puff IH QID PRN #8.5 gram 08/16/21 08/18/21 11:30 Rx [ProAir HFA Inhaler] Apixaban [Eliquis] 5 mg PO Q12HR #60 tablet 08/16/21 08/18/21 03:00 Rx predniSONE 10 mg PO .TAPER #21 tab 08/16/21 08/18/21 08:00 Rx HYDROcodone/APAP 5-325 [[place] 1 each PO Q6HR PRN #6 tablet 08/18/21 Unknown Rx 5/325] Allergies Allergy/AdvReac Type Severity Reaction Status Date / Time Penicillins Allergy Rash Verified 08/18/21 16:23 tetracycline Allergy Rash Verified 08/18/21 16:23 aspirin AdvReac Unknown Verified 08/18/21 16:23 ED Review of Systems ROS: Stated complaint: CHEST PAIN Other details as noted in HPI Comment: All other systems reviewed and negative Constitutional: denies: fever Eyes: denies: vision change ENT: denies: throat pain Respiratory: see HPI Cardiovascular: as per HPI Endocrine: denies: unexplained weight loss Gastrointestinal: denies: abdominal pain Genitourinary: denies: dysuria Musculoskeletal: as per HPI Skin: denies: rash Neurological: denies: headache Hematological/Lymphatic: denies: easy bruising ED Past Medical Hx - Past Medical History Additional medical history: avm of the thoracic spine. Pulmonary embolism - Surgical History Additional Surgical History: spinal surgery x 2 2004 - Family History Family history: no significant - Social History Smoking Status: Never Smoker - Medications Home Medications: Home Medications Medication Instructions Recorded Confirmed Last Taken Type Albuterol Mdi (or & Nicu Only) 2 puff IH QID PRN #8.5 gram 08/16/21 08/18/21 11:30 Rx [ProAir HFA Inhaler] Apixaban [Eliquis] 5 mg PO Q12HR #60 tablet 08/16/21 08/18/21 03:00 Rx Pregabalin 50 mg PO TID 08/16/21 08/16/21 Unknown History metFORMIN 500 mg PO BID 08/16/21 08/16/21 08/18/21 07:00 History predniSONE 10 mg PO .TAPER #21 tab 08/16/21 08/18/21 08:00 Rx HYDROcodone/APAP 5-325 [[place] 1 each PO Q6HR PRN #6 tablet 08/18/21 Unknown Rx 5/325] ED Physical Exam - General Limitations: No Limitations, Other (Pulse ox noted and normal by EMS) General appearance: alert, in no apparent distress, anxious, obese, other (Uncomfortable) - Head Head exam: Present: atraumatic, normocephalic - Eye Eye exam: Present: normal appearance, EOMI - ENT ENT exam: Present: normal orophraynx, normal external ear exam - Neck Neck exam: Present: normal inspection. Absent: meningismus - Respiratory Respiratory exam: Present: normal lung sounds bilaterally. Absent: respiratory distress - Cardiovascular Cardiovascular Exam: Present: regular rate, normal rhythm - GI/Abdominal GI/Abdominal exam: Present: soft. Absent: distended - Extremities Exam Extremities exam: Present: normal capillary refill - Back Exam Back exam: Absent: CVA tenderness (R), CVA tenderness (L) - Neurological Exam Neurological exam: Present: alert, oriented X3, CN II-XII intact. Absent: motor sensory deficit - Psychiatric Psychiatric exam: Present: normal affect, normal mood - Skin Skin exam: Present: warm, dry ED Course Vital Signs 08/18/21 08/18/21 08/18/21 14:44 15:24 15:30 Temperature 98.0 F Pulse Rate 76 73 Respiratory 16 15 17 Rate Blood Pressure Blood Pressure 150/90 [Right] O2 Sat by Pulse 98 97 93 Oximetry 08/18/21 08/18/21 08/18/21 15:46 16:00 16:20 Temperature 98.5 F Pulse Rate 77 80 Respiratory 11 L 17 Rate Blood Pressure 186/91 Blood Pressure [Right] O2 Sat by Pulse 100 99 Oximetry - Reevaluation(s) Reevaluation #1: 08/18/21 14:23 EMS was met. Old records noted. X-ray and analgesics ordered. Reevaluation #2: 08/18/21 16:54 X-ray was noted. Patient was discharged. ED Medical Decision Making - Radiology Data Radiology results: report reviewed - Medical Decision Making Patient presents secondary to chest pain related to a pulmonary embolism. She does not have new tachycardia or hypoxia. She states that this is the same pain she had previously. She is very upset that she was never discharged on analgesics. Patient was given a very short course of analgesics to get her through today. She can follow-up with her regular doctor tomorrow to determine appropriate use of ongoing pain medication. She has no radiographic evidence of pneumothorax. She does not have evidence of congestive heart failure. Critical Care Time: No Critical care attestation.: If time is entered above; I have spent that time in minutes in the direct care of this critically ill patient, excluding procedure time. ED Disposition Clinical Impression: Pleuritic chest pain Pulmonary emboli Qualifiers: Pulmonary embolism type: unspecified Chronicity: acute Acute cor pulmonale presence: without acute cor pulmonale Qualified Code(s): I26.99 - Other pulmonary embolism without acute cor pulmonale Disposition: HOME / SELF CARE / HOMELESS Is pt being admited?: No Condition: Stable Instructions: Nonspecific Chest Pain, Adult Additional Instructions: Continue taking blood thinners. Drink water. See your regular doctor tomorrow for ongoing pain medication. Prescriptions: HYDROcodone/APAP 5-325 [[place] 5/325] 1 each PO Q6HR PRN #6 tablet PRN Reason: Pain
--- NOTE | 2021-08-18 15:23 | XRay Report ---
CHEST 2 VIEWS INDICATION / CLINICAL INFORMATION: Right chest pain. COMPARISON: One view of the chest from 08/14/2021. FINDINGS: SUPPORT DEVICES: None. HEART / MEDIASTINUM: No significant abnormality. LUNGS / PLEURA: No significant pulmonary abnormality. No significant pleural effusion. No pneumothora x. ADDITIONAL FINDINGS: No significant additional findings. IMPRESSION: 1. No acute abnormality of the chest. Signer Name: Cheo Orozco MD Signed: 08/18/2021 3:18 PM Workstation Name: [id number]
[2021-08-18 18:13] VITALS: BP 158/85
--- NOTE | 2021-08-22 13:31 | Electrocardiograph Report ---
[facility] Test Date: 2021-08-18 Test Time: 14:31:49 Pat Name: BRADLEY HCAMBERS Department: Room: Gender: F [employer] Customer Service Agent: MARIANNE : 1950 Requested By: MIRIAM LAYTON Order Number: [id number] Reading MD: Ned Manzanares Measurements Intervals [place] Rate: 67 P: -22 MA: 138 QRS: 7 QRSD: 86 T: -7 QT: 445 QTc: 470 Interpretive Statements Sinus rhythm Low voltage, precordial leads Nonspecific T abnormalities, anterior leads Compared to ECG 08/16/2021 09:37:33 No significant change Electronically Signed On 08-22-2021 13:31:10 EST by Nde Manzanares
== END 2021-08-18 18:35 | disposition home or self-care (01) ==
LOC: ED 14:21
DX: R09.1 Pleurisy (principal); I26.99 Other pulmonary embolism without acute cor pulmonale; Z88.6 Allergy status to analgesic agent; Z88.0 Allergy status to penicillin; Z88.1 Allergy status to other antibiotic agents
CPT/HCPCS: 71046; 93005; 93010; 99284